=== PATIENT | female | born 1970 | race Caucasian/White ===

== ENCOUNTER 2020-07-22 17:56 | Emergency (ER) | payer OTHER ==
[~2020-07-22 17:56] MED LIST: ALLOPURINOL 10100 M1 PO; AMOXICILLIN 50500 M1 PO; APAP/CODEINE ELI5 M1 OR; CLARITIN10 MG PO; HYDROCODONE-AP1 EAC6 PO; LIDODERM 5%1 PATC1 TOP; LIPITOR 20 MG T20 M1 PO; LISINOPRIL10 MG PO; LOPRESSOR25 PO; MAGNESIUM500 MG PO; MAXZIDE-25 MG1 EACH PO; MUCINEX TA600 MG/TA2 PO; NORCO 5-325 TA1 EACH PO; ONDANSETRON HCL4 M2 PO; PRILOSEC 20 MG20 MG PO; PRILOSEC40 MG PO; TIAZAC120 M1; ZANTAC 150MG T150 MG; ZYRTEC10 MG PO
[2020-07-22 17:58] VITALS: BP 164/90
== END 2020-07-22 19:41 | disposition left against medical advice (07) ==
LOC: ER 17:56
DX: M54.9 Dorsalgia, unspecified (principal); Z53.21 Procedure and treatment not carried out due to patient leaving prior to being seen by health care provider